=== PATIENT | male | born 2005 | race Caucasian/White ===

== ENCOUNTER 2023-11-07 10:47 | Inpatient (IN) | payer OTHER ==
[~2023-11-07] VITALS: Ht 175.3 cm; Wt 105.9 kg
[2023-11-07 10:57] VITALS: PULSE 76; RESP 14; O2SAT 100
[2023-11-07 11:18] LABS: Basophils # (auto) 0.1 10 ^3/uL (0-0.2); Basophils % (auto) 0.8 % (0.0-2.0); Eosinophils # (auto) 0.1 10 ^3/uL (0-0.8); Eosinophils % (auto) 0.8 % (0.0-7.0); Hematocrit 46.3 % (41.0-53.0); Hemoglobin 15.8 g/dL (13.5-17.5); Lymphocytes # (auto) 3.3 10 ^3/uL (0.4-5.4); Lymphocytes % (auto) 31.7 % (10.0-50.0); Mean Corpuscular Hemoglobin 30.8 pg (28.0-32.0); Mean Corpuscular Hgb Conc. 34.1 g/dL (32.0-36.0); Mean Corpuscular Volume 90.3 fL (80.0-100.0); Monocytes # (auto) 0.7 10 ^3/uL (0-1.3); Monocytes % (auto) 6.9 % (0.0-12.0); Neutrophils # (auto) 6.2 10 ^3/uL (1.6-8.6); Neutrophils % (auto) 59.8 % (37.0-80.0); Red Blood Cells 5.12 10^6/uL (4.5-5.90); Red Cell Distribution Width 13.1 % (11.8-14.3); White Blood Cell 10.4 10^3/uL (4.4-10.8)
[2023-11-07 11:39] LABS: Alanine Aminotransferase 33 U/L (7-40); Alkaline Phosphatase 86 U/L (46-116); Anion Gap 5 (5-15); Aspartate Aminotransferase 18 U/L (13-40); BUN/Creatinine Ratio 11.1 (10.0-20.0); Blood Urea Nitrogen 14 mg/dL (9-23); Calcium 9.4 mg/dL (8.7-10.4); Carbon Dioxide 27 mmol/L (20-30); Chloride 105 mmol/L (98-107); Glucose 97 mg/dL (74-106); Magnesium 2.1 mg/dL (1.6-2.6); Potassium 4.2 mmol/L (3.5-5.1); Sodium 137 mmol/L (136-145)
[2023-11-07 11:40] LABS: Albumin 4.3 g/dL (3.2-4.8); Bilirubin, Total 0.7 mg/dL (0.2-1.0); Total Protein 6.6 g/dL (5.7-8.2)
[2023-11-07 11:49] LABS: Urine Bacteria None Seen /hpf (None Seen)
[2023-11-07 11:51] LABS: INR 1.04 (0.9-1.15); Partial Thromboplastin Time 29.9 SEC (24.5-34.5)
[2023-11-07 12:02] LABS: Urine Blood Negative /uL (Negative); Urine Clarity Clear (Clear); Urine Color Light-Yellow (Yellow); Urine Hyaline Cast FEW /lpf (0 - 2); Urine Mucus FEW (None Seen); Urine Protein, UAD Negative (Negative); Urine Specific Gravity 1.024 (1.001-1.035); Urine Urobilinogen Normal (Negative); Urine WBC 1 /hpf (0 - 3); Urine pH 5.5 (5.0-9.0)
[2023-11-07] MEDS ORDERED: ONDANSETRON HCL 4 MG/2 ML VIAL IV PRN (14:00)
[2023-11-07] MEDS ORDERED: NITROGLYCERIN 0.4 MG SL TAB SL PRN ×2 (14:00)
[2023-11-07] MEDS ORDERED: ACETAMINOPHEN 325 MG TAB PO PRN (14:00)
[2023-11-07 14:55] LABS: INR 1.07 (0.9-1.15); Prothrombin Time 11.3 sec (9.3-11.8)
[2023-11-07 15:06] LABS: Magnesium 2.2 mg/dL (1.6-2.6)
[2023-11-07 15:08] LABS: Phosphorus 3.6 mg/dL (2.4-5.1)
[2023-11-07] MEDS: MAGNESIUM SULFATE 1GM/100ML 100 ML IV ONE (15:54)
[2023-11-07] MEDS: dilTIAZem 120MG ER CAP PO ONE (15:55)
[2023-11-07 16:18] LABS: Amphetamine Screen, Urine Neg (NEGATIVE); Barbiturate Scree,Urine Neg (NEGATIVE); Benzodiazephine Screen, Urine Neg (NEGATIVE); Cannabinoid Screen, Urine Neg (NEGATIVE); Cocaine Screen, Urine Neg (NEGATIVE); Opiate Scree,Urine Neg (NEGATIVE); Phencyclidine Screen, Urine Neg (NEGATIVE)
[2023-11-07 19:30] VITALS: PULSE 90; RESP 16; O2SAT 98
[2023-11-07] MEDS ORDERED: METOPROLOL TARTRATE 25 MG TAB PO SCH (22:00)
[2023-11-07] MEDS ORDERED: ATORVASTATIN 20 MG TAB PO SCH (22:00)
[2023-11-07] MEDS ORDERED: ENOXAPARIN SOD 100 MG/1 ML SYRINGE SC SCH (22:00)
[2023-11-07 22:22] VITALS: BP 126/69; PULSE 60; RESP 20; TEMP 98.1; O2SAT 96
[2023-11-07 23:25] VITALS: BP 126/69; PULSE 60; RESP 20; TEMP 98.1; O2SAT 96
[2023-11-08 01:00] VITALS: BP 102/57; PULSE 69; RESP 20; TEMP 97.5; O2SAT 96
[2023-11-08 05:00] VITALS: BP 107/60; PULSE 75; RESP 20; TEMP 98; O2SAT 97
[2023-11-08 07:12] LABS: Basophils # (auto) 0.1 10 ^3/uL (0-0.2); Basophils % (auto) 0.7 % (0.0-2.0); Eosinophils # (auto) 0.1 10 ^3/uL (0-0.8); Hematocrit 43.3 % (41.0-53.0); Hemoglobin 15.3 g/dL (13.5-17.5); Lymphocytes # (auto) 3.3 10 ^3/uL (0.4-5.4); Lymphocytes % (auto) 34.1 % (10.0-50.0); Mean Corpuscular Hemoglobin 32.2 pg (28.0-32.0); Mean Corpuscular Hgb Conc. 35.4 g/dL (32.0-36.0); Mean Corpuscular Volume 91.1 fL (80.0-100.0); Monocytes # (auto) 0.8 10 ^3/uL (0-1.3); Monocytes % (auto) 8.8 % (0.0-12.0); Neutrophils # (auto) 5.3 10 ^3/uL (1.6-8.6); Neutrophils % (auto) 55.4 % (37.0-80.0); Red Blood Cells 4.75 10^6/uL (4.5-5.90); Red Cell Distribution Width 13.2 % (11.8-14.3); White Blood Cell 9.6 10^3/uL (4.4-10.8)
[2023-11-08 07:30] LABS: Alanine Aminotransferase 28 U/L (7-40); Alkaline Phosphatase 80 U/L (46-116); Anion Gap 6 (5-15); Aspartate Aminotransferase 14 U/L (13-40); Blood Urea Nitrogen 16 mg/dL (9-23); Calcium 9.1 mg/dL (8.7-10.4); Carbon Dioxide 25 mmol/L (20-30); Chloride 108 mmol/L (98-107); Cholesterol 123 mg/dL (< 200); Glucose 107 mg/dL (74-106); HDL Cholesterol 35 mg/dL (40-59); LDL Cholesterol 76 mg/dL (< 100); Magnesium 2.1 mg/dL (1.6-2.6); Potassium 4.3 mmol/L (3.5-5.1); Sodium 139 mmol/L (136-145); Triglycerides 158 mg/dL (< 150)
[2023-11-08 07:31] LABS: Bilirubin, Total 0.5 mg/dL (0.2-1.0); Total Protein 6.2 g/dL (5.7-8.2)
[2023-11-08 08:00] VITALS: PULSE 64; PULSE 74; RESP 16; O2SAT 98
[2023-11-08 08:45] VITALS: BP 109/57; PULSE 64; RESP 16; TEMP 98.5; O2SAT 98
[2023-11-08] MEDS: METOPROLOL SUCCINATE XL 50 MG TAB PO SCH (09:48)
[2023-11-08] MEDS: DOCUSATE SOD 100 MG CAP PO SCH (09:48)
[2023-11-08] MEDS: FLECAINIDE ACETATE 50 MG TAB PO SCH (09:48)
[2023-11-08] MEDS: MAGNESIUM OXIDE 400 MG TAB PO SCH (09:51)
[2023-11-08] MEDS ORDERED: dilTIAZem 120MG ER CAP PO SCH (10:00)
[2023-11-08] MEDS ORDERED: ASPirin 81 mg TAB PO SCH (10:00)
[2023-11-08 12:58] VITALS: BP 118/47; PULSE 76; RESP 17; TEMP 99; O2SAT 98
[2023-11-08] MEDS ORDERED: FLEC100T PO (15:16)
[2023-11-08] MEDS ORDERED: METO25TA93 PO (15:16)
[2023-11-08 16:38] VITALS: BP 128/59; PULSE 96; RESP 17; TEMP 98.7; O2SAT 98
== END 2023-11-08 16:40 | disposition home or self-care (01) | DRG 310 ==
LOC: ER 10:47 → EDBD 10:47 → TELE 13:50 → TELE-E-ADS 22:22
PROVIDERS: ADMIT Internal Medicine; ATTEND Emergency Medicine
DX: I49.3 Ventricular premature depolarization (principal); E66.9 Obesity, unspecified; R00.8 Other abnormalities of heart beat; I44.7 Left bundle-branch block, unspecified; Z68.34 Body mass index [BMI] 34.0-34.9, adult; Z83.3 Family history of diabetes mellitus
CPT/HCPCS: 36415; 71045; 80053; 80061; 80307; 81001; 83036; 83735; 84100; 84443; 84484; 85025; 85379; 85610; 85730; 93005; 93306; G0378

== ENCOUNTER 2024-04-17 08:37 | Day surgery (SDC) | payer OTHER ==
[2024-04-15 14:17] LABS: Urine Bacteria None Seen /hpf (None Seen)
[2024-04-15 14:22] LABS: Basophils # (auto) 0.1 10 ^3/uL (0-0.2); Basophils % (auto) 0.6 % (0.0-2.0); Eosinophils # (auto) 0.3 10 ^3/uL (0-0.8); Hematocrit 44.6 % (41.0-53.0); Hemoglobin 15.3 g/dL (13.5-17.5); Lymphocytes # (auto) 3.6 10 ^3/uL (0.4-5.4); Mean Corpuscular Hemoglobin 30.9 pg (28.0-32.0); Mean Corpuscular Hgb Conc. 34.2 g/dL (32.0-36.0); Mean Corpuscular Volume 90.4 fL (80.0-100.0); Monocytes % (auto) 6.9 % (0.0-12.0); Neutrophils # (auto) 8.9 10 ^3/uL (1.6-8.6); Neutrophils % (auto) 64.5 % (37.0-80.0); Nucleated Red Blood Cells % 0.1 %; Platelet Count (auto) 320 10^3/uL (140-450); Red Blood Cells 4.94 10^6/uL (4.5-5.90); Red Cell Distribution Width 12.7 % (11.8-14.3); White Blood Cell 13.8 10^3/uL (4.4-10.8)
[2024-04-15 14:33] LABS: Urine Blood Negative /uL (Negative); Urine Clarity Clear (Clear); Urine Color Light-Yellow (Yellow); Urine Protein, UAD Negative (Negative); Urine Squamous Epithelial Cell None Seen /hpf (<5); Urine Urobilinogen Normal (Negative); Urine WBC <1 /hpf (0 - 3)
[2024-04-15 14:44] LABS: INR 1.03 (0.9-1.15); Partial Thromboplastin Time 31.5 SEC (24.5-34.5); Prothrombin Time 10.9 sec (9.3-11.8)
[2024-04-15 14:50] LABS: Chloride 106 mmol/L (98-107); Potassium 4.6 mmol/L (3.5-5.1); Sodium 141 mmol/L (136-145)
[2024-04-15 14:51] LABS: Anion Gap 5 (5-15); Carbon Dioxide 30 mmol/L (20-31)
[2024-04-15 14:56] LABS: BUN/Creatinine Ratio 11.9 (10.0-20.0); Blood Urea Nitrogen 19 mg/dL (9-23); Glucose 99 mg/dL (74-106)
[2024-04-17] VITALS (8 sets, daily range): BP systolic 106–136; BP diastolic 49–65; PULSE 61–77; RESP 12–15; O2SAT 96–98
[~2024-04-17] VITALS: Ht 175.3 cm; Wt 104.3 kg
[~2024-04-17 08:37] MED LIST: FLEC100T PO; METO25TA93 PO
[2024-04-17] MEDS ORDERED: HEPARIN SODIUM (PORCINE) 5000 UNITS/ML 1ML VIAL ONE (13:08)
[2024-04-17] MEDS ORDERED: ANGIOMAX 250 MG VIAL IV ONE (13:08)
[2024-04-17] MEDS ORDERED: VERAPAMIL 2.5MG/ML INJ 2ML VIAL IV ONE (13:08)
[2024-04-17] MEDS ORDERED: SODIUM CHL 0.9% 0 ML ONE (13:08)
[2024-04-17] MEDS ORDERED: fentaNYL CITRATE 100 MCG/2 ML VL ONE ×2 (13:08→13:55)
[2024-04-17] MEDS ORDERED: MIDAZOLAM HCL 2MG/2ML 2ml VIAL (1mg/ml) ONE (13:08)
[2024-04-17] MEDS ORDERED: LIDOCAINE 2%HCL (LOCAL ANESTH.) INJ 20ML MDV ONE (13:09)
[2024-04-17] MEDS ORDERED: IODIXANOL 320MG/ML 100ML BTL IV ONE (13:24)
--- NOTE | 2024-04-17 15:06 | DVHOP2 ---
Operative Report Date of Procedures: 04/17/2024 Procedures performed: Left heart catheterization and bilateral coronary angiogram Moderate sedation Diagnosis: Anomalous origin of left coronary system Preserved left ventricular systolic function: LVEF of 55% with normal LVEDP (5 mm Hg) No significant atherosclerotic coronary artery disease Coronary CT angiography is suggested to better define/delineate coronary routes and estimate outcome/prognosis Cardiac suggestion for management: Coronary CT angiography is suggested to better define/delineate coronary routes and estimate outcome/prognosis Treadmill Exercise stress test (further evaluation of PVCs) residential monitor to better evaluate PVC load. 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 The artery designated as left main travels inside and then gives branches out back to the surface of the heart making mid to distal LAD (starting from a septum) and also other branches to the surface producing LCX/ramus inte rmedius/diagonals. No significant atherosclerotic lesion in the epicardial vessels is seen. Right coronary artery originates from right coronary sinus. It is the dominant vessel and provided RPDA/RPLS. There is no angiographic evidence of disease in right coronary artery. Presentation: Patient is a 18-year-old gentleman who presented with chest discomfort to the office. He was found to have high blood pressure and frequent PVCs. Echocardiogram of January 2024 revealed preserved left ventricular systo lic function, normal diastolic, minimal mitral valve prolapse, no wall motion abnormality, trace MR/TR/PI and right ventricular systolic pressure of 39 mm Hg. Nuclear stress test of January 2024 was abnormal and the patient was sent for cardiac catheterization Procedure: After obtaining informed consent, the patient was brought to the labels molder. He was prepped and draped in sterile fashion. 2 mg of Versed and 200 mcg of fentanyl were used for moderate sedation. Using modified Seldinger technique, the right radial artery was accessed and a 6 Thai slender sheath was inserted into it. A 5 Thai tiger 4 diagnostic catheter was used to perform some of left coronary angiography. Right coronary angiography was performed using the 5 Thai tiger 4 diagnostic catheter. A 6 Thai pigtail catheter was used to perform left heart catheterization (obtaining pressures and performing left ventriculography) and aortic root shot/ascending aortography. A 6 Thai JL 3.5 diagnostic catheter was used to complete left coronary angiography. Total bleeding was less than 10 mL. There was no dissection/hematoma/perforation. Patient tolerated the procedure with no complication. Right radial artery access site was managed by deploying a TR band. There was no indication for any transcatheter revascularization. Fluoroscopy time: 7.8 minutes contrast: 130 mL of RICKEY Becerra MD Apr 17, 2024 15:06
== END 2024-04-17 16:55 | disposition home or self-care (01) ==
LOC: CATH 08:37
PROVIDERS: ATTEND Internal Medicine Cardiovascular Disease
DX: R07.9 Chest pain, unspecified (principal); I10 Essential (primary) hypertension; I49.3 Ventricular premature depolarization; D50.0 Iron deficiency anemia secondary to blood loss (chronic); J44.9 Chronic obstructive pulmonary disease, unspecified; Z79.01 Long term (current) use of anticoagulants; Z83.3 Family history of diabetes mellitus
CPT/HCPCS: 36415; 80048; 81001; 85025; 85610; 85730; 87086; 87088; 87186; 93458; C1769; C1894; J1644; J2250; J3010; Q9967; 99152; 99153